=== PATIENT | female | born 1955 | race Caucasian/White ===

== ENCOUNTER 2018-07-05 08:00 | Day surgery (SDC) | payer BC ==
--- OUTSIDE RECORDS SUMMARY | 2018-07-05 08:13 | XMS REPORT ---
:1955 Author Organization eClinicalWorks Care Team Providers Name Role Phone Guilherme [facility] Provider Role Unavailable Allergies No Known Allergies Problems Problem Type Condition Code Onset Dates Condition Status Assessment Fatigue, unspecified type R53.83 Active Assessment Elevated BP without diagnosis of R03.0 Active hypertension Assessment Vitamin D deficiency E55.9 Active Problem Mixed hyperlipidemia E78.2 Active Problem Fatigue, unspecified type R53.83 Active Problem Vitamin D deficiency E55.9 Active Assessment Hypothyroidism, unspecified type E03.9 Active Assessment Mixed hyperlipidemia E78.2 Active Problem Hypothyroidism, unspecified type E03.9 Active Medications Medication Code System Code Instructions Start End Date Status Dosage Date Synthroid [facility][NOTE 3] [id number] 50 MCG Orally Jun 17, Active 1 tablet on Once a day 2017 an empty stomach in the morning Results No Known Results Summary Purpose eClinicalWorks Submission
--- OUTSIDE RECORDS SUMMARY | 2018-07-05 08:13 | XMS REPORT ---
:1955 Author Organization eClinicalWorks Care Team Providers Name Role Phone Vanegas, Bebeto Provider Role Unavailable Allergies, Adverse Reactions, Alerts Substance Reaction Event Type MORPHINE Info Not Available Drug Allergy Demerol Info Not Available Drug Allergy Problems Problem Type Condition Code Onset Dates Condition Status Assessment Fatigue, unspecified type R53.83 Active Assessment Screening for colon cancer Z12.11 Active Assessment Need for Tdap vaccination Z23 Active Assessment Encounter for preventative adult Z00.01 Active health care exam with abnormal findings Problem Hypothyroidism, unspecified type E03.9 Active Assessment Encounter for screening for other Z11.59 Active viral diseases Assessment Screening mammogram, encounter for Z12.31 Active Assessment Elevated BP without diagnosis of R03.0 Active hypertension Assessment Hypothyroidism, unspecified type E03.9 Active Medications No Known Medications Results No Known Results Immunizations Vaccine Administration Date TDAP > 7 Years-Adacel May 30, 2018 Summary Purpose eClinicalWorks Submission
--- OUTSIDE RECORDS SUMMARY | 2018-07-05 08:13 | XMS REPORT ---
:1955 Author Organization eClinicalWorks Care Team Providers Name Role Phone Elan Solorio Provider Role Unavailable Allergies, Adverse Reactions, Alerts Substance Reaction Event Type MORPHINE Info Not Available Drug Allergy Demerol Info Not Available Drug Allergy Problems Problem Type Condition Code Onset Dates Condition Status Problem Mixed hyperlipidemia E78.2 Active Problem Fatigue, unspecified type R53.83 Active Problem Vitamin D deficiency E55.9 Active Assessment Encounter for screening colonoscopy Z12.11 Active Problem Hypothyroidism, unspecified type E03.9 Active Medications Medication Code System Code Instructions Start End Date Status Dosage Date Synthroid [facility] [id number] 50 MCG Orally Jun 17, Active 1 tablet on Once a day 2017 an empty stomach in the morning Results No Known Results Summary Purpose eClinicalWorks Submission
[2018-07-05] MEDS ORDERED: Ringers Lactate 1,000 ML IV ONE (08:38)
[2018-07-05] MEDS ORDERED: LIDOCAINE 1% MPF 2 ML AMPULE ONE (10:02)
[2018-07-05] MEDS ORDERED: PROPOFOL 200 MG/20 ML VIAL IV ONE (10:02)
--- NOTE | 2018-07-05 10:25 | ENDO RPT ---
[address], [address] COLONOSCOPY PROCEDURE REPORT EXAM DATE: 07/05/2018 PATIENT NAME: Yesi Liu MR #: [id number] BIRTHDATE: 1955 ATTENDING: Elan Solorio DR STATUS: outpatient DIRECTOR OF DEVELOPMENT AND MARKETING: Ines Mosley RN and Zbigniew Cifuentes [facility] INDICATIONS: The patient is a 63 yr old Female here for a colonoscopy due to colon cancer screening PROCEDURE PERFORMED: Screening Colonoscopy and Colonoscopy MEDICATIONS: Per Anesthesia. ESTIMATED BLOOD LOSS: None CONSENT: The patient understands the risks and benefits of the procedure and understands that these risks include, but are not limited to: sedation, allergic reaction, infection, perforation and/or bleeding. Alternative means of evaluation and treatment include, among others: physical exam, x-rays, and/or surgical intervention. The patient elects to proceed with this endoscopic procedure. DESCRIPTION OF PROCEDURE: During intra-op preparation period all mechanical medical equipment was checked for proper function. Hand hygiene and appropriate measures for infection prevention was taken. Procedure, possible complications, alternatives including, but not limited to possibility of bleeding, perforation, tear, infection, sepsis, need for surgery, need for blood transfusion, were explained to the patient. After the risks, benefits and alternatives of the procedure were thoroughly explained, Informed consent was verified, confirmed and timeout was successfully executed by the treatment team. The patient was placed in the left lateral position. A digital rectal exam was performed and revealed no abnormalities of the rectum. After appropriate level of anesthesia, the scope was passed. The EC-[id number] ([id number]) endoscope was introduced through the anus and advanced to the cecum, which was identified by both the appendix and ileocecal valve. The quality of the prep was good. The instrument was then slowly withdrawn as the colon was fully examined. Scope withdrawal time was 8 minutes. COLON FINDINGS: A normal appearing cecum, ileocecal valve, and appendiceal orifice were identified. the ascending, transverse, descending, sigmoid colon, and rectum appeared unremarkable. Retroflexed views revealed no abnormalities. The scope was then completely withdrawn from the patient and the procedure terminated. ADVERSE EVENTS: There were no complications. IMPRESSIONS: A normal appearing cecum, ileocecal valve, and appendiceal orifice were identified. the ascending, transverse, descending, sigmoid colon, and rectum appeared unremarkable RECOMMENDATIONS: 1. fiber rich diet 2. yearly hemoccult starting in 4 years RECALL: Return in 10 year(s) for Colonoscopy. Elan Solorio DR eSigned: Elan Solorio DR 07/05/2018 10:24 AM cc: CPT CODES: ICD9 CODES: PATIENT NAME: Yesi Liu MR#: [id number]
== END 2018-07-05 11:11 | disposition home or self-care (01) ==
LOC: OR 08:00
PROVIDERS: ATTEND Surgery
PROC: 0DJD8ZZ Inspection of Lower Intestinal Tract, Via Natural or Artificial Opening Endoscopic (ICD-10-PCS; principal; 2018-07-05 10:00)
DX: Z12.11 Encounter for screening for malignant neoplasm of colon (principal); Z98.84 Bariatric surgery status; Z88.5 Allergy status to narcotic agent; Z88.0 Allergy status to penicillin
CPT/HCPCS: J2001

== ENCOUNTER 2019-07-29 15:33 | Emergency (ER) | payer BC, OTHER ==
--- NOTE | 2019-07-29 16:02 | ER ---
Nurse's Notes [facility] Name: Yesi Ribeiro Age: 64 yrs Sex: Female : 1955 Arrival Date: 07/29/2019 Time: 15:36 Bed 19 Private MD: None, None Diagnosis: Cellulitis and acute lymphangitis of other parts of limb-right forearm Presentation: 07/29 15:39 Presenting complaint: Patient states: right elbow/arm swelling/redness started sv yesterday. Transition of care: patient was not received from another setting of care. Onset of symptoms was July 28, 2019. Risk Assessment: Do you want to hurt yourself or someone else? Patient reports no desire to harm self or others. Care prior to arrival: None. 15:39 Method Of Arrival: Ambulatory sv 15:39 Acuity: RITA 3 sv 15:50 Initial Sepsis Screen: Does the patient meet any 2 criteria? No. Patient's initial tw2 sepsis screen is negative. Does the patient have a suspected source of infection? Yes: Skin breakdown/wound. Historical: - Allergies: 15:39 PENICILLINS; sv 15:39 Morphine; sv 15:39 Codeine; sv 15:39 Meperidine; sv - Home Meds: 15:44 None [Active]; tw2 - PSHx: 15:44 Hysterectomy; Cholecystectomy; gastric bypass; Tonsillectomy; tw2 - Immunization history:: Last tetanus immunization:. - Social history:: Smoking status: . - Ebola Screening: : Patient denies travel to an Ebola-affected area in the 21 days before illness onset. - Family history:: not pertinent. Screenin:44 Abuse screen: Denies threats or abuse. Nutritional screening: No deficits noted. tw2 Tuberculosis screening: No symptoms or risk factors identified. Fall Risk None identified. Assessment: 15:45 General: Appears in no apparent distress. well groomed, Behavior is calm, cooperative, tw2 appropriate for age. Pain: Complains of pain in right tricep and right elbow. Neuro: Level of Consciousness is awake, alert, obeys commands, Oriented to person, place, time, situation. Cardiovascular: Patient's skin is warm and dry. Respiratory: Airway is patent Respiratory effort is even, unlabored, Respiratory pattern is regular, symmetrical. GI: No signs and/or symptoms were reported involving the gastrointestinal system. : No signs and/or symptoms were reported regarding the genitourinary system. EENT: No signs and/or symptoms were reported regarding the EENT system. Derm: redness and swelling noted to RIGHT elbow and magallanes aspect around the RIGHT elbow, pt reports "hot" to the touch. Musculoskeletal: Circulation, motion, and sensation intact. Range of motion: intact in all extremities. 16:08 Reassessment: Patient appears in no apparent distress at this time. No changes from tw2 previously documented assessment. Patient and/or family updated on plan of care and expected duration. Pain level reassessed. Patient is alert, oriented x 3, equal unlabored respirations, skin warm/dry/pink. Vital Signs: 15:39 BP 162 / 99; Pulse 89; Resp 18; Temp 98.4; Pulse Ox 100% ; Weight 63.5 kg; Height 4 ft. sv 10 in. (147.32 cm); Pain 0/10; 15:39 Body Mass Index 29.26 (63.50 kg, 147.32 cm) sv ED Course: 15:36 Patient arrived in ED. mr 15:37 None, None is Private Physician. mr 15:39 Triage completed. sv 15:40 Ericka Fierro RN is Primary Nurse. tw2 15:40 Ahmet Yarbrough MD is Attending Physician. jacquelyn 15:40 Arm band placed on. sv 15:40 Call light in reach. tw2 16:01 Elan Solorio MD is Referral Physician. jacquelyn 16:08 No provider procedures requiring assistance completed. Patient did not have IV access tw2 during this emergency room visit. Administered Medications: 16:03 Drug: Bactrim (160 mg-800 mg (DS) 1 tablet Route: PO; tw2 16:07 Follow up: Response: No adverse reaction tw2 16:03 Drug: Doxycycline 200 mg Route: PO; tw2 16:07 Follow up: Response: No adverse reaction tw2 16:03 Drug: Pepcid 20 mg Route: PO; tw2 16:07 Follow up: Response: No adverse reaction tw2 Outcome: 16:02 Discharge ordered by . jacquelyn 16:08 Patient left the ED. tw2 16:08 Discharged to home ambulatory. tw2 16:08 Condition: stable 16:08 Discharge instructions given to patient, Instructed on discharge instructions, follow up and referral plans. no drinking with medication, no driving heavy equipment, medication usage, Demonstrated understanding of instructions, follow-up care, medications, Prescriptions given X 5 Signatures: Shantelle Choe, Ahmet Carrillo RN, MD MD cha Rivera, Mary mr Wise, Tara, RN RN tw2
[2019-07-29] MEDS ORDERED: FAMOTIDINE 20 MG TAB ONE (16:03)
[2019-07-29] MEDS ORDERED: DOXYCYCLINE 100 MG CAP PO ONE (16:03)
[2019-07-29] MEDS ORDERED: SMZ./TMP. 800/160 MG TABLET ONE (16:03)
--- NOTE | 2019-07-29 16:03 | EDPHYS ---
Physician Documentation [facility] Name: Yesi Ribeiro Age: 64 yrs Sex: Female : 1955 Arrival Date: 07/29/2019 Time: 15:36 Bed 19 Private MD: None, None ED Physician Ahmet Yarbrough HPI: 07/29 15:58 This 64 yrs old Female presents to ER via Ambulatory with complaints of Arm jacquelyn Swelling. 15:58 The patient or guardian complains of decreased range of motion, pain, that is acute. jacquelyn The complaints affect the palmar aspect of right forearm. Context: The problem was sustained at an unknown location. Onset: The symptoms/episode began/occurred 2 day(s) ago. Treatment prior to arrival includes: no previous treatment. Modifying factors: The symptoms are alleviated by remaining still, the symptoms are aggravated by movement, lifting weight. Associated signs and symptoms: The patient has no apparent associated signs or symptoms. Severity of symptoms: At their worst the symptoms were mild, moderate, in the emergency department the symptoms are unchanged. The patient has not experienced similar symptoms in the past. Historical: - Allergies: 15:39 PENICILLINS; sv 15:39 Morphine; sv 15:39 Codeine; sv 15:39 Meperidine; sv - Home Meds: 15:44 None [Active]; tw2 - PSHx: 15:44 Hysterectomy; Cholecystectomy; gastric bypass; Tonsillectomy; tw2 - Immunization history:: Last tetanus immunization:. - Social history:: Smoking status: . - Ebola Screening: : Patient denies travel to an Ebola-affected area in the 21 days before illness onset. - Family history:: not pertinent. ROS: 15:58 Constitutional: Negative for fever, chills, and weight loss, Eyes: Negative for injury, jacquelyn pain, redness, and discharge, ENT: Negative for injury, pain, and discharge, Neck: Negative for injury, pain, and swelling, Cardiovascular: Negative for chest pain, palpitations, and edema, Respiratory: Negative for shortness of breath, cough, wheezing, and pleuritic chest pain, Abdomen/GI: Negative for abdominal pain, nausea, vomiting, diarrhea, and constipation, Back: Negative for injury and pain, : Negative for injury, bleeding, discharge, and swelling, Skin: Negative for injury, rash, and discoloration, Neuro: Negative for headache, weakness, numbness, tingling, and seizure, Psych: Negative for depression, anxiety, suicide ideation, homicidal ideation, and hallucinations, Allergy/Immunology: Negative for hives, rash, and allergies, Endocrine: Negative for neck swelling, polydipsia, polyuria, polyphagia, and marked weight changes, Hematologic/Lymphatic: Negative for swollen nodes, abnormal bleeding, and unusual bruising. 15:58 MS/extremity: Positive for erythema, pain, swelling, tenderness, of the palmar aspect of right forearm. Exam: 15:58 Constitutional: This is a well developed, well nourished patient who is awake, alert, jacquelyn and in no acute distress. Head/Face: Normocephalic, atraumatic. Eyes: Pupils equal round and reactive to light, extra-ocular motions intact. Lids and lashes normal. Conjunctiva and sclera are non-icteric and not injected. Cornea within normal limits. Periorbital areas with no swelling, redness, or edema. ENT: Nares patent. No nasal discharge, no septal abnormalities noted. Tympanic membranes are normal and external auditory canals are clear. Oropharynx with no redness, swelling, or masses, exudates, or evidence of obstruction, uvula midline. Mucous membranes moist. Neck: Trachea midline, no thyromegaly or masses palpated, and no cervical lymphadenopathy. Supple, full range of motion without nuchal rigidity, or vertebral point tenderness. No Meningismus. Chest/axilla: Normal chest wall appearance and motion. Nontender with no deformity. No lesions are appreciated. Cardiovascular: Regular rate and rhythm with a normal S1 and S2. No gallops, murmurs, or rubs. Normal PMI, no JVD. No pulse deficits. Respiratory: Lungs have equal breath sounds bilaterally, clear to auscultation and percussion. No rales, rhonchi or wheezes noted. No increased work of breathing, no retractions or nasal flaring. Abdomen/GI: Soft, non-tender, with normal bowel sounds. No distension or tympany. No guarding or rebound. No evidence of tenderness throughout. Back: No spinal tenderness. No costovertebral tenderness. Full range of motion. Skin: Warm, dry with normal turgor. Normal color with no rashes, no lesions, and no evidence of cellulitis. Neuro: Awake and alert, GCS 15, oriented to person, place, time, and situation. Cranial nerves II-XII grossly intact. Motor strength 5/5 in all extremities. Sensory grossly intact. Cerebellar exam normal. Normal gait. Psych: Awake, alert, with orientation to person, place and time. Behavior, mood, and affect are within normal limits. 15:58 Musculoskeletal/extremity: ROM: no acute changes, intact in all extremities, Circulation is intact in all extremities. the palmar aspect of right forearm Compartment Syndrome exam of affected extremity: is normal. DVT Exam: negative Homans' sign noted on exam, no appreciated bluish discoloration, pain, swelling, tenderness, erythema, increased warmth. Vital Signs: 15:39 BP 162 / 99; Pulse 89; Resp 18; Temp 98.4; Pulse Ox 100% ; Weight 63.5 kg; Height 4 ft. sv 10 in. (147.32 cm); Pain 0/10; 15:39 Body Mass Index 29.26 (63.50 kg, 147.32 cm) sv MDM: 15:40 Patient medically screened. [facility] 16:01 Data reviewed: vital signs, nurses notes. [facility] Administered Medications: 16:03 Drug: Bactrim (160 mg-800 mg (DS) 1 tablet Route: PO; tw2 16:07 Follow up: Response: No adverse reaction tw2 16:03 Drug: Doxycycline 200 mg Route: PO; tw2 16:07 Follow up: Response: No adverse reaction tw2 16:03 Drug: Pepcid 20 mg Route: PO; tw2 16:07 Follow up: Response: No adverse reaction 2 Disposition: 07/29/19 16:02 Discharged to Home. Impression: Cellulitis and acute lymphangitis of other parts of limb - right forearm. - Condition is Stable. - Discharge Instructions: Insect Bite, [id number], Insect Bite, Cellulitis, Adult, [id number]. - Prescriptions for Benadryl 25 mg Oral Capsule - take 1 capsule by ORAL route every 6 hours As needed; 30 tablet. Pepcid 20 mg Oral Tablet - take 1 tablet by ORAL route every 12 hours for 10 days; 20 tablet. Doxycycline Hyclate 100 mg Oral Tablet - take 1 tablet by ORAL route every 12 hours; 20 tablet. Motrin IB 200 mg Oral Tablet - take 2 tablet by ORAL route every 6 hours As needed as needed with food; 30 tablet. Bactrim DS 800- 160 mg Oral Tablet - take 1 tablet by ORAL route every 12 hours for 10 days; 20 tablet. - Medication Reconciliation Form, Thank You Letter, Antibiotic Education, Prescription Opioid Use, Work release form form. - Follow up: Private Physician; When: 2 - 3 days; Reason: Recheck today's complaints, Continuance of care, Re-evaluation by your physician. Follow up: Elan Solorio MD; When: 2 - 3 days; Reason: Recheck today's complaints, Continuance of care, Re-evaluation by your physician. - Problem is new. - Symptoms have improved. Signatures: Shantelle Choe, RN RN Ahmet Blankenship MD MD cha Wise, Tara RN RN tw2 Corrections: (The following items were deleted from the chart) 16:08 16:02 07/29/2019 16:02 Discharged to Home. Impression: Cellulitis and acute tw2 lymphangitis of other parts of limb - right forearm. Condition is Stable. Forms are Work release form, Medication Reconciliation Form, Thank You Letter, Antibiotic Education, Prescription Opioid Use. Follow up: Private Physician; When: 2 - 3 days; Reason: Recheck today's complaints, Continuance of care, Re-evaluation by your physician. Follow up: Elan Solorio; When: 2 - 3 days; Reason: Recheck today's complaints, Continuance of care, Re-evaluation by your physician. Problem is new. Symptoms have improved. jacquelyn
[2019-07-29 16:13] VITALS: BP 162/99; TEMP 98.4; O2SAT 100
== END 2019-07-29 16:08 | disposition home or self-care (01) ==
LOC: ER 15:33
DX: L03.113 Cellulitis of right upper limb (principal); I89.1 Lymphangitis; Z88.0 Allergy status to penicillin; Z88.6 Allergy status to analgesic agent
CPT/HCPCS: 99283